=== PATIENT | male | born 1965 | race Caucasian/White ===

== ENCOUNTER 2018-08-16 09:23 | Emergency (ER) | payer OTHER ==
[~2018-08-16] VITALS: Ht 167.6 cm; Wt 84.0 kg
[~2018-08-16 09:23] MED LIST: HYDR-3240 PO; NONE PER PT; ONDA4TAB10 PO
[2018-08-16] MEDS ORDERED: MECLIZINE CHEWABLE 25 MG TAB PO ONE ×2 (10:00→11:00)
[2018-08-16 10:03] LABS: BASOPHILS # (AUTO) 0.03 x10^3/uL (0-0.1); BASOPHILS % (AUTO) 0 % (0-1); EOSINOPHILS # (AUTO) 0.01 x10^3/uL (0-0.4); EOSINOPHILS % (AUTO) 0 % (1-7); LYMPHOCYTES # (AUTO) 0.76 x10^3/uL (1-3.4); LYMPHOCYTES % (AUTO) 7 % (22-44); MD NO; MEAN CORPUSCULAR HEMOGLOBIN 28.7 pg (27.5-34.5); MEAN CORPUSCULAR HGB CONC 31.9 g/dL (33.2-36.2); MEAN CORPUSCULAR VOLUME 89.8 fL (81-97); MEAN PLATELET VOLUME 8.1 fL (7.4-10.4); MONOCYTES # (AUTO) 0.41 x10^3/uL (0.2-0.8); MONOCYTES % (AUTO) 4 % (2-9); NEUTROPHILS # (AUTO) 9.72 x10^3/uL (1.8-6.8); NEUTROPHILS % (AUTO) 89 % (42-75); PLATELET COUNT 243 x10^3/uL (130-400); RED BLOOD COUNT 5.96 x10^6/uL (4.38-5.82); RED CELL DISTRIBUTION WIDTH 13.6 % (9.4-14.8)
[2018-08-16 10:08] LABS: ALBUMIN 4.2 g/dL (3.4-5.0); ANION GAP 9 mmol/L (5-15); CALCIUM 8.9 mg/dL (8.5-10.1); CHLORIDE 106 mmol/L (98-107)
[2018-08-16 10:09] LABS: CREATININE 1.07 mg/dL (0.7-1.3)
[2018-08-16] MEDS ORDERED: ONDANSETRON ODT 8 MG ONE (10:36)
[2018-08-16] MEDS ORDERED: MECLIZINE CHEWABLE 25 MG TAB ONE ×2 (10:36→10:38)
[2018-08-16] MEDS ORDERED: ONDANSETRON ODT 4 MG PO ONE (11:00)
[2018-08-16] MEDS ORDERED: DIAZEPAM 5 MG TABLET ONE (12:11)
--- NOTE | 2018-08-16 12:21 | NUR ---
pt in room and medicated per order. pt to ct for head scan. pt tolerated po fluids . made aware.
[2018-08-16] MEDS ORDERED: DIAZEPAM 5 MG TABLET PO ONE (12:30)
[2018-08-16 16:13] VITALS: BP 127/88
--- NOTE | 2018-08-16 16:16 | NUR ---
rechecked vss stable family at bed side pt wants to drink will ask pt stated " i am still having SHETTY "
== END 2018-08-16 16:45 | disposition home or self-care (01) ==
LOC: ED 10:54
DX: H81.02 Meniere's disease, left ear (principal); H81.392 Other peripheral vertigo, left ear
CPT/HCPCS: 36415; 70450; 70551; 80048; 82040; 85025; 93005; 99284; Q0162

== ENCOUNTER 2018-11-03 14:59 | Outpatient (CLI) | payer OTHER | END 2018-11-03 23:59 | disposition home or self-care (01) | LOC: CFH 14:59 | PROVIDERS: ATTEND Otolaryngology | DX: H91.22 Sudden idiopathic hearing loss, left ear (principal); J32.0 Chronic maxillary sinusitis | CPT/HCPCS: 70553; A9585 ==

== ENCOUNTER → 2019-02-07 | Outpatient (CLI) | payer OTHER | END | disposition home or self-care (01) | LOC: CFH 15:20 | PROVIDERS: ATTEND Physician Assistant Medical | DX: M54.16 Radiculopathy, lumbar region (principal); M54.5 Low back pain | CPT/HCPCS: 72100 ==

== ENCOUNTER → 2020-04-22 | Outpatient (CLI) | payer OTHER ==
[~2020-04-22] MED LIST changes: +HYDR-1067 PO; -HYDR-3240 PO; +REGADENOSON 0.4 MG/5 ML SYRINGE ONE
== END | disposition home or self-care (01) ==
LOC: CFH 12:49
PROVIDERS: ATTEND Internal Medicine Cardiovascular Disease
DX: I49.3 Ventricular premature depolarization (principal)
CPT/HCPCS: 78452; 93017; A9502; J2785